=== PATIENT | male | born 2000 | race Caucasian/White ===

== ENCOUNTER → 2025-01-26 07:08 | Outpatient (REF) | payer BC, SELFPAY | LOC: RAD 07:08 | PROVIDERS: ATTENDING PHYSICIAN Hospitalist | DX: R63.4 Abnormal weight loss (principal) | CPT/HCPCS: 71250; 74177; Q9967 ==

== ENCOUNTER 2025-03-03 06:19 | Day surgery (SDC) | payer BC, SELFPAY | END 2025-03-03 13:45 | disposition home or self-care (01) | LOC: GI 06:19 | PROVIDERS: ATTENDING PHYSICIAN Internal Medicine Gastroenterology | DX: R19.4 Change in bowel habit (principal); K52.9 Noninfective gastroenteritis and colitis, unspecified; R63.4 Abnormal weight loss; K63.89 Other specified diseases of intestine; K29.70 Gastritis, unspecified, without bleeding; K86.89 Other specified diseases of pancreas; K29.50 Unspecified chronic gastritis without bleeding; Z15.060 Genetic susceptibility to colorectal cancer; Z15.09 Genetic susceptibility to other malignant neoplasm | CPT/HCPCS: 45380; 43239; 88305; 88342 ==